=== PATIENT | female | born 1965 | race Caucasian/White ===

== ENCOUNTER 2016-12-30 23:46 | Emergency (ER) | payer SELFPAY ==
[~2016-12-30] VITALS: Ht 172.7 cm; Wt 70.0 kg
[2016-12-30 23:52] VITALS: Ht 172.7 cm; Wt 70.0 kg
[2016-12-30] MEDS ORDERED: HALOPERIDOL 5 MG INJ IM STA (23:53)
[2016-12-31] MEDS ORDERED: SOD CHLORIDE 0.9% 1,000 ML IV ONE
[2016-12-31] MEDS ORDERED: LORAZEPAM 2 MG INJ IM ONE
[2016-12-31] MEDS ORDERED: DIPHENHYDRAMINE 50 MG INJ IM ONE
[2016-12-31 01:10] VITALS: BP 133/82; PULSE 89; RESP 20; TEMP 98.5
[2016-12-31 01:16] LABS: BASOPHILS % 0.6 % (0.0-2.0); EOSINOPHILS # 0.2 10^3/ul (0.0-0.5); EOSINOPHILS % 2.6 % (0.0-7.0); HEMATOCRIT 36.6 % (37.0-47.0); LYMPHOCYTES # 1.7 10^3/ul (0.8-2.9); LYMPHOCYTES % 26.2 % (15.0-51.0); MEAN CORPUSCULAR HEMOGLOBIN 32.2 pg (29.0-33.0); MEAN CORPUSCULAR HGB CONC 32.8 g/dl (32.0-37.0); MEAN CORPUSCULAR VOLUME 98.1 fl (82.0-101.0); MEAN PLATELET VOLUME 9.1 fl (7.4-10.4); MONOCYTE # 0.5 10^3/ul (0.3-0.9); MONOCYTES % 7.5 % (0.0-11.0); NEUTROPHILS % 62.3 % (39.0-77.0); PLATELET COUNT 329 10^3/UL (140-415); RED BLOOD COUNT 3.73 10^6/ul (4.20-5.40); RED CELL DISTRIBUTION WIDTH 13.2 % (11.5-14.5); WHITE BLOOD COUNT 6.4 10^3/ul (4.8-10.8)
[2016-12-31 01:36] LABS: ALANINE AMINOTRANSFERASE 31 IU/L (13-69); ALBUMIN 3.5 g/dl (3.3-4.9); ALBUMIN/GLOBULIN RATIO 0.92; ALKALINE PHOSPHATASE 62 IU/L (42-121); ANION GAP 13 (8-16); ASPARTATE AMINO TRANSFERASE 20 IU/L (15-46); BLOOD UREA NITROGEN 17 mg/dl (7-20); CARBON DIOXIDE 23 mmol/L (21-31); CHLORIDE 113 mmol/L (97-110); CREATININE 0.75 mg/dl (0.44-1.00); GLUCOSE 95 mg/dl (70-220); POTASSIUM 3.4 mmol/L (3.5-5.1); SODIUM 146 mmol/L (135-144); TOTAL PROTEIN 7.3 g/dl (6.1-8.1)
[2016-12-31 01:53] LABS: ACETAMINOPHEN < 10.0 ug/ml (10.0-30.0); SALICYLATE < 1.0 mg/dl (5.0-30.0)
--- NOTE | 2016-12-31 06:03 | ERD ---
ER Documentation Chief Complaint Date/Time DATE: 12/31/16 TIME: 06:03 Chief Complaint bib ra from bar, etoh, aloc HPI 51-year-old female brought in by rescue from a bar for alcohol abuse. Currently she became very agitated started screaming. Denies suicidal homicidal ideation. She denies any other current complaints. ROS All systems reviewed and are negative except as per history of present illness. Allergies Allergies: Coded Allergies: No Known Allergy (Unverified , 12/30/16) PMhx/Soc Medical and Surgical Hx: pt denies Medical Hx, pt denies Surgical Hx Hx Miscellaneous Medical Probl: Yes (unable to obtain history patient is aloc) Hx Alcohol Use: No Hx Substance Use: No Hx Tobacco Use: No Smoking Status: Current every day smoker Physical Exam Vitals Vital Signs Date Time Temp Pulse Resp B/P Pulse Ox O2 Delivery O2 Flow Rate FiO2 12/31/16 01:10 98.5 89 20 133/82 100 Room Air 12/31/16 00:12 98.5 103 18 126/81 100 Room Air 12/30/16 23:52 98.5 82 18 126/81 100 Physical Exam Const: [] Head: Atraumatic Eyes: Normal Conjunctiva ENT: Normal External Ears, Nose and Mouth. Neck: Full range of motion..~ No meningismus. Resp: Clear to auscultation bilaterally Cardio: Regular rate and rhythm, no murmurs Abd: Soft, non tender, non distended. Normal bowel sounds Skin: No petechiae or rashes Back: No midline or flank tenderness Ext: No cyanosis, or edema Neur: Awake and alert Psych: Normal Mood and Affect Result Diagram: 12/31/16 0054 12/31/16 0054 Results 24 hrs Laboratory Tests Test 12/31/16 00:54 White Blood Count 6.410^3/ul Red Blood Count 3.7310^6/ul Hemoglobin 12.0g/dl Hematocrit 36.6% Mean Corpuscular Volume 98.1fl Mean Corpuscular Hemoglobin 32.2pg Mean Corpuscular Hemoglobin Concent 32.8g/dl Red Cell Distribution Width 13.2% Platelet Count 90660^3/UL Mean Platelet Volume 9.1fl Neutrophils % 62.3% Lymphocytes % 26.2% Monocytes % 7.5% Eosinophils % 2.6% Basophils % 0.6% Nucleated Red Blood Cells % 0.0/100WBC Neutrophils # 4.010^3/ul Lymphocytes # 1.710^3/ul Monocytes # 0.510^3/ul Eosinophils # 0.210^3/ul Basophils # 0.010^3/ul Nucleated Red Blood Cells # 0.010^3/ul Sodium Level 146mmol/L Potassium Level 3.4mmol/L Chloride Level 113mmol/L Carbon Dioxide Level 23mmol/L Anion Gap 13 Blood Urea Nitrogen 17mg/dl Creatinine 0.75mg/dl Glucose Level 95mg/dl Calcium Level 8.0mg/dl Total Bilirubin 0.0mg/dl Direct Bilirubin 0.00mg/dl Indirect Bilirubin 0.0mg/dl Aspartate Amino Transf (AST/SGOT) 20IU/L Alanine Aminotransferase (ALT/SGPT) 31IU/L Alkaline Phosphatase 62IU/L Total Protein 7.3g/dl Albumin 3.5g/dl Globulin 3.80g/dl Albumin/Globulin Ratio 0.92 Salicylates Level < 1.0mg/dl Acetaminophen Level < 10.0ug/ml Ethyl Alcohol Level 170.0mg/dl Current Medications Medications (Trade) Dose Ordered Sig/Tamia Route PRN Reason Start Time Stop Time Status Last Admin Dose Admin Haloperidol (Haldol) 5 mg ONCE STAT IM 12/30/16 23:53 12/30/16 23:55 DC 12/31/16 00:04 Diphenhydramine HCl (Benadryl) 50 mg ONCE ONCE IM 12/31/16 00:00 12/31/16 00:01 DC 12/31/16 00:05 Lorazepam 2 mg 2 mg ONCE ONCE IM 12/31/16 00:00 12/31/16 00:01 DC 12/31/16 00:04 Sodium Chloride (NS) 1,000 ml @ 1,000 mls/hr Q1H ONCE IV 12/31/16 00:00 12/31/16 00:59 DC 12/31/16 00:11 Procedures/MDM A pleasant patient here for alcohol abuse. She has been on sober patient be discharged home. Advised to stop drinking. Departure Diagnosis: Primary Impression: Agitation Condition: Stable Patient Instructions: Alcohol Abuse MARVIN LUIS Dec 31, 2016 06:03
== END 2016-12-31 06:25 | disposition home or self-care (01) ==
LOC: E/R 23:46
DX: R45.1 Restlessness and agitation (principal); F17.210 Nicotine dependence, cigarettes, uncomplicated
CPT/HCPCS: 36415; 80053; 80306; 85025; 96372; 99284; J1200; J1630; J2060; J7030